=== PATIENT | male | born 1995 | race Caucasian/White ===

== ENCOUNTER 2018-03-05 01:25 | Emergency (ER) | payer SELFPAY ==
[~2018-03-05] VITALS: Ht 167.6 cm; Wt 63.5 kg
[2018-03-05] MEDS ORDERED: DEXAMETHASONE 10 MG/ML (DECADRON) 1 ML VIAL IM ONE (02:00)
--- NOTE | 2018-03-05 02:05 | ED Integumentary General ---
General Chief Complaint: Allergic Reaction Stated Complaint: HIVES Source: patient Exam Limitations: no limitations History of Present Illness Date Seen by Provider: Mar 05, 2018 Time Seen by Provider: 01:54 Initial Comments Here with report of spots on his back that is concerned or hives. They have the appearance more of blood bites. He does admit that he just had a new couch from his neighbor and this started afterwards. Denies other problems. Timing/Duration: this evening Severity: mild Location: torso Possible Cause: insect bite Associated Symptoms: No edema, No hives; other (bug bites in 3s) Allergies and Home Medications Allergies Coded Allergies: alprazolam (Verified Allergy, Unknown, 07/24/15) Patient Home Medication List Home Medication List Reviewed: Yes Review of Systems Review of Systems Constitutional: see HPI; No chills, No fever Respiratory: no symptoms reported Cardiovascular: no symptoms reported Skin: see HPI, change in color, lesions Past [id number] Hx Past Med/Social Hx: Reviewed Nursing Past Med/Soc Hx Patient Social History Alcohol Use: Denies Use Recreational Drug Use: No Smoking Status: Current Everyday Smoker Recent Foreign Travel: No Contact w/Someone Who Travel: No Immunizations Up To Date Tetanus Booster (TDap): Unknown Seasonal Allergies Seasonal Allergies: No Past Medical History Surgeries: No Respiratory: No Cardiac: No Neurological: No Reproductive Disorders: No Sexually Transmitted Disease: No Family Medical History Reviewed Nursing Family Hx Physical Exam Vital Signs Capillary Refill : General Appearance: WD/WN, no apparent distress Cardiovascular: regular rate, rhythm, no murmur Respiratory: lungs clear, normal breath sounds Skin: normal color, warm/dry Skin Problem Character: lesion (multiple groups of lesions in 3s) Procedures/Interventions Suture Size: 4-0 Progress/Results/Core Measures Results/Orders My Orders Orders - ELIZABETH PYLE MD Dexamethasone Injection (Decadron Inject (03/05/18 02:00) Progress Progress Note : Progress Note Seen and evaluated. Consistent with bedbug bites. Decadron 10 mg IM. Discharged home with return precautions. Patient verbalize understanding instructions and agreement with plan. Departure Impression Primary Impression: Insect bites Qualified Codes: S20.469A - Insect bite (nonvenomous) of unspecified back wall of thorax, initial encounter; W57.XXXA - Bitten or stung by nonvenomous insect and other nonvenomous arthropods, initial encounter Disposition: HOME, SELF-CARE Condition: Improved Departure-Patient Inst. Decision time for Depature: 02:06 Referrals: NO,LOCAL PHYSICIAN (PCP/Family) Primary Care Physician Patient Instructions: Insect Bites and Stings (DC) Add. Discharge Instructions: All discharge instructions reviewed with patient and/or family. Voiced understanding. You may use topical hydrocortisone to areas of concern to her 3 times daily for the next several days and then as needed. Follow-up with your Dr. in a few days for recheck. Return for worse pain, swelling, weakness, breathing problems or other concerns as needed. ELIZABETH PYLE MD Mar 05, 2018 02:05
[2018-03-05 02:30] VITALS: BP 120/75
== END 2018-03-05 02:30 | disposition home or self-care (01) ==
LOC: EDUNIT# 01:25 → ER 01:29
DX: S20.469A Insect bite (nonvenomous) of unspecified back wall of thorax, initial encounter (principal); F17.200 Nicotine dependence, unspecified, uncomplicated; Z88.8 Allergy status to other drugs, medicaments and biological substances; W57.XXXA Bitten or stung by nonvenomous insect and other nonvenomous arthropods, initial encounter
CPT/HCPCS: 99283

== ENCOUNTER 2018-05-25 15:54 | Emergency (ER) | payer SELFPAY ==
--- NOTE | 2018-05-25 16:04 | NUR ---
attempted to call pt to room. pt not in waiting room.
--- NOTE | 2018-05-25 16:14 | NUR ---
ATTEMPTED TO CALL PT BACK TO ROOM. PT NOT IN WAITING ROOM OR ER RESTROOMS.
== END 2018-05-25 16:14 | disposition left against medical advice (07) ==
LOC: EDUNIT# 15:54 → ER 16:00
DX: S69.91XA Unspecified injury of right wrist, hand and finger(s), initial encounter (principal); X58.XXXA Exposure to other specified factors, initial encounter